=== PATIENT | male | born 2000 | race Caucasian/White ===

== ENCOUNTER 2023-03-20 01:46 | Emergency (ER) | payer OTHER ==
[2023-03-20 04:47] VITALS: BP 128/78; TEMP 98.8; O2SAT 98
== END 2023-03-20 04:48 | disposition home or self-care (01) ==
LOC: M ED 01:46
DX: S33.5XXA Sprain of ligaments of lumbar spine, initial encounter (principal); V49.50XA Passenger injured in collision with unspecified motor vehicles in traffic accident, initial encounter; Y92.410 Unspecified street and highway as the place of occurrence of the external cause

== ENCOUNTER 2023-05-04 17:18 | Emergency (ER) | payer OTHER ==
[~2023-05-04] VITALS: Ht 180.3 cm; Wt 76.6 kg
[2023-05-04 17:18] VITALS: BP 137/75; TEMP 96.9; O2SAT 98
== END 2023-05-04 20:23 | disposition home or self-care (01) ==
LOC: M ED 17:18
DX: F32.9 Major depressive disorder, single episode, unspecified (principal)

== ENCOUNTER 2023-10-08 22:12 | Emergency (ER) | payer OTHER ==
[~2023-10-08] VITALS: Ht 182.9 cm; Wt 78.5 kg
[~2023-10-08 22:12] MED LIST: CYCL5TAB PO; IBUP-1022 PO; LIDO5DIS41 TOP; ONDA4TAB6 PO
[2023-10-08 22:13] VITALS: BP 148/80; TEMP 97.2; O2SAT 97
== END 2023-10-08 23:28 | disposition left against medical advice (07) ==
LOC: M ED 22:12
DX: Z53.21 Procedure and treatment not carried out due to patient leaving prior to being seen by health care provider (principal)

== ENCOUNTER 2024-02-24 15:01 | Inpatient (IN) | payer OTHER ==
[~2024-02-24] VITALS: Ht 182.9 cm; Wt 75.9 kg
[~2024-02-24 15:01] MED LIST changes: +ONDA-282 PO; -ONDA4TAB6 PO
[2024-02-24 16:32] LABS: AMPHETAMINES LEVEL URINE NEGATIVE (NEGATIVE); BARBITURATES URINE NEGATIVE (NEGATIVE); BENZODIAZEPINES URINE NEGATIVE (NEGATIVE); CANNABINOIDS URINE NEGATIVE (NEGATIVE); COCAINE METABOLITE URINE NEGATIVE (NEGATIVE); METHADONE URINE NEGATIVE (NEGATIVE); OPIATES URINE NEGATIVE (NEGATIVE); PHENCYCLIDINE URINE NEGATIVE (NEGATIVE)
[2024-02-24] MEDS ORDERED: HOME MED LIST COMPLETE! XX SCH (16:50)
[2024-02-24 17:58] LABS: HEMATOCRIT 43.5 % (42.0-52.0); HEMOGLOBIN 15.2 g/dl (13.5-17.5); MEAN CORPUSCULAR HEMOGLOBIN 29.5 pg (27.0-33.0); MEAN CORPUSCULAR HGB CONC 34.9 g/dl (32.0-36.5); MEAN CORPUSCULAR VOLUME 84.5 fl (80.0-96.0); PLATELET COUNT, AUTOMATED 262 10^3/uL (150-450); RED BLOOD COUNT 5.15 10^6/uL (4.30-6.10); WHITE BLOOD COUNT 8.8 10^3/uL (4.0-10.0)
[2024-02-24 18:15] LABS: ETHYL ALCOHOL (ETHANOL) < 0.003 % (0.000-0.010)
[2024-02-24 18:16] LABS: SALICYLATE LEVEL < 3.0 MG/DL (<30)
[2024-02-24 18:17] LABS: ALBUMIN 4.5 G/DL (3.2-5.2); ALKALINE PHOSPHATASE 72 U/L (46-116); ALT/SGPT 15 U/L (7.0-40); AST/SGOT 15 U/L (<34); BILIRUBIN,DIRECT 0.3 MG/DL (<0.4); BILIRUBIN,TOTAL 0.8 MG/DL (0.3-1.2); BLOOD UREA NITROGEN 8 MG/DL (9-23); CALCIUM LEVEL 10.3 MG/DL (8.5-10.1); CARBON DIOXIDE LEVEL 30 MMOL/L (20-31); CHLORIDE LEVEL 105 MMOL/L (98-107); CREATININE FOR GFR 0.87 MG/DL (0.70-1.30); GLOMERULAR FILTRATION RATE > 60.0 (>60); GLUCOSE, FASTING 89 MG/DL (60-100); POTASSIUM SERUM 3.9 MMOL/L (3.5-5.1); SODIUM LEVEL 143 MMOL/L (136-145); TOTAL PROTEIN 7.2 G/DL (5.7-8.2)
[2024-02-24 18:19] LABS: THYROID STIMULATING HORMONE 0.678 uIU/ML (0.55-4.78)
[2024-02-24] MEDS ORDERED: MOM 30ML SUSPENSION UDC PO PRN (19:30)
[2024-02-24] MEDS ORDERED: IBUPROFEN 400MG TAB PO PRN (19:30)
[2024-02-24] MEDS ORDERED: diphenhydrAMINE 25MG CAP PO PRN (19:30)
[2024-02-24] MEDS ORDERED: MAALOX 30 ML SUSP *UDC PO PRN (19:30)
[2024-02-24] MEDS ORDERED: LORazepam 1 MG TAB PO PRN (20:20)
[2024-02-24] MEDS: NICOTINE 21MG/24HR 1 EA TRANSDERMAL TD ONE (20:30)
[2024-02-24 21:08] VITALS: BP 133/85; TEMP 98; O2SAT 98
[2024-02-24] MEDS: traZODone 50 MG TAB PO PRN (23:05)
[2024-02-25 06:19] VITALS: BP 143/65; TEMP 98.2; O2SAT 98
[2024-02-25] MEDS: ACETAMINOPHEN TAB 650MG DOSE (2X325MG) PO PRN (11:04)
[2024-02-25] MEDS: FOLIC ACID 1MG TAB PO SCH (15:55)
[2024-02-25] MEDS: THIAMINE 100 MG TAB PO SCH (15:55)
[2024-02-25] MEDS: MULTIVITAMINS/MINERALS THERAP 1 TAB PO SCH (15:55)
[2024-02-25] MEDS ORDERED: OLANZapine ORAL DISINTEGRATING TAB 5MG PO PRN (16:05)
[2024-02-25 16:38] VITALS: BP 119/60; TEMP 97.7; O2SAT 100
[2024-02-25 17:00] VITALS: BP 119/60
[2024-02-25] MEDS: NICOTINE 21MG/24HR 1 EA TRANSDERMAL TD SCH (18:46)
[2024-02-25] MEDS: traZODone 100 MG TAB PO PRN (21:08)
[2024-02-25 22:30] VITALS: BP 126/68
[2024-02-26] VITALS (7 sets, daily range): BP systolic 110–160; BP diastolic 57–84; TEMP 97.6–98.1; O2SAT 96–100
[2024-02-26] MEDS: LORazepam 2 MG TAB PO PRN (09:37)
[2024-02-27 06:34] VITALS: BP 137/63; TEMP 98.3; O2SAT 98
[2024-02-27 06:36] VITALS: BP 137/63
[2024-02-27 18:49] VITALS: BP 136/76; TEMP 98
[2024-02-28 05:57] VITALS: BP 129/64; TEMP 97.9; O2SAT 96
[2024-02-28] MEDS ORDERED: TRAZ-257 PO (07:53)
== END 2024-02-28 10:15 | disposition home or self-care (01) | DRG 881 ==
LOC: M ED 15:01 → EDBD 15:01 → M ED INP 19:30 → M PSY 20:37
PROVIDERS: ADMIT Student in an Organized Health Care Education/Training Program; ATTEND Student in an Organized Health Care Education/Training Program
DX: F32.A Depression, unspecified (principal); R45.851 Suicidal ideations; E83.52 Hypercalcemia

== ENCOUNTER 2024-04-10 13:17 | Emergency (ER) | payer OTHER ==
[~2024-04-10] VITALS: Ht 182.9 cm; Wt 77.3 kg
[~2024-04-10 13:17] MED LIST changes: +TRAZ-257 PO
[2024-04-10 15:52] VITALS: BP 129/68; TEMP 96.8; O2SAT 100
[2024-04-11] MEDS ORDERED: ONDA-282 PO (13:55)
[2024-04-11] MEDS ORDERED: IBUP-1022 PO (13:55)
[2024-04-11] MEDS ORDERED: FIOR1CAP PO (13:55)
== END 2024-04-10 15:54 | disposition home or self-care (01) ==
LOC: M ED 13:17 → EDBD 13:17 → M ED 15:54
DX: S01.01XA Laceration without foreign body of scalp, initial encounter (principal); W19.XXXA Unspecified fall, initial encounter; Y92.410 Unspecified street and highway as the place of occurrence of the external cause; Y93.9 Activity, unspecified; Y99.9 Unspecified external cause status; F32.A Depression, unspecified; G47.00 Insomnia, unspecified; Z87.820 Personal history of traumatic brain injury

== ENCOUNTER 2024-04-11 11:34 | Emergency (ER) | payer OTHER ==
[~2024-04-11] VITALS: Ht 182.9 cm; Wt 78.5 kg
[2024-04-11] MEDS: FIORICET TAB PO ONE (13:43)
[2024-04-11] MEDS: ONDANSETRON 4MG ORAL DISINTEGRATING TAB PO ONE (13:43)
[2024-04-11] MEDS ORDERED: ONDA-282 PO (13:55)
[2024-04-11] MEDS ORDERED: FIOR1CAP PO (13:55)
[2024-04-11] MEDS ORDERED: IBUP-1022 PO (13:55)
[2024-04-11 14:23] VITALS: BP 123/59; TEMP 98; O2SAT 99
== END 2024-04-11 14:24 | disposition home or self-care (01) ==
LOC: M ED 11:34
DX: S06.0X0A Concussion without loss of consciousness, initial encounter (principal); X58.XXXA Exposure to other specified factors, initial encounter; Y92.9 Unspecified place or not applicable; Y93.9 Activity, unspecified; Y99.9 Unspecified external cause status; G47.00 Insomnia, unspecified

== ENCOUNTER 2024-05-11 10:27 | Emergency (ER) | payer OTHER ==
[~2024-05-11] VITALS: Ht 182.9 cm; Wt 79.8 kg
[~2024-05-11 10:27] MED LIST changes: +FIOR1CAP PO
[2024-05-11] MEDS: METOCLOPRAMIDE INJ 10MG/2ML VIAL IV ONE (15:01)
[2024-05-11] MEDS: NS 1,000 ML IV ONE (15:01)
[2024-05-11] MEDS: KETOROLAC 30 MG/ML 1ML VIAL IV ONE (15:01)
[2024-05-11 16:32] VITALS: BP 137/66; TEMP 97.8; O2SAT 97
== END 2024-05-11 16:34 | disposition home or self-care (01) ==
LOC: M ED 10:27
DX: G43.909 Migraine, unspecified, not intractable, without status migrainosus (principal)
CPT/HCPCS: 96361; 96374; 96375; 99284; J1885; J2765

== ENCOUNTER 2024-06-08 02:02 | Emergency (ER) | payer OTHER ==
[~2024-06-08] VITALS: Ht 182.9 cm; Wt 82.2 kg
[2024-06-08 04:28] VITALS: BP 138/69; TEMP 96.9; O2SAT 100
[2024-06-08] MEDS ORDERED: AMOX500C PO (05:35)
[2024-06-08] MEDS ORDERED: CIPR7.5D2 AS (05:35)
[2024-06-08] MEDS: AMOXICILLIN 500 MG CAP PO ONE (05:44)
== END 2024-06-08 05:54 | disposition home or self-care (01) ==
LOC: M ED 02:02
DX: H60.92 Unspecified otitis externa, left ear (principal); H72.2X2 Other marginal perforations of tympanic membrane, left ear; G47.00 Insomnia, unspecified; F17.200 Nicotine dependence, unspecified, uncomplicated; Z79.899 Other long term (current) drug therapy